=== PATIENT | female | born 1990 | race Caucasian/White ===

== ENCOUNTER 2025-07-11 05:18 | Inpatient (IN) | payer OTHER ==
[~2025-07-11] VITALS: Ht 167.6 cm; Wt 86.0 kg
[2025-07-11] MEDS: LORazepam 2 MG/ML VIAL IVP ONE ×2 (05:25→08:18)
[2025-07-11 05:42] LABS: PLATELET COUNT (AUTO) 451 K/uL (150-450); RED BLOOD CELL COUNT(AUTO) 4.65 MIL/uL (4.00-5.20); RED CELL DISTRIBUTION WIDTH 14.3 % (11.5-14.5); WHITE BLOOD COUNT (AUTO) 10.6 K/uL (4.5-11.0)
[2025-07-11 05:49] LABS: CALCIUM, TOTAL 8.6 mg/dL (8.8-10.5); CREATININE 0.80 mg/dL (0.60-1.30); GLOMERULAR FILTR. RATE CALC > 60 mL/min (>60); GLUCOSE,RANDOM 111 mg/dL (70-110); SODIUM SERUM 139 mmol/L (136-145); UREA NITROGEN, BLOOD 10 mg/dL (7-18)
[2025-07-11 06:00] LABS: TROPONIN I-HIGH SENSITIVITY Less Than 4 ng/L (<51)
[2025-07-11] MEDS: LevETIRAcetam 2,000 MG in DEXTROSE 5%-WATER 250 ML IV ONE (06:00)
[2025-07-11 06:01] LABS: LACTIC ACID 11.9 mmol/L (0.4-2.0)
[2025-07-11] MEDS: SODIUM CHLORIDE 0.9% 1,000 ML IV ONE (06:15)
[2025-07-11 06:21] LABS: GLUCOMETER DEV NAME(LOC) ER.7; GLUCOSE,POINT OF CARE 128 MG/DL (70-110)
[2025-07-11 06:28] LABS: APPEARANCE,URINE CLEAR (CLEAR); GLUCOSE, URINE (UA) NEGATIVE (NEGATIVE); LEUKOCYTE ESTERASE ,URINE NEGATIVE (NEGATIVE); NITRATE,URINE NEGATIVE (NEGATIVE); OCCULT BLOOD,URINE NEGATIVE (NEGATIVE); PH,URINE DRUG SCREEN 5.0 (5.0-8.0); SPECIFIC GRAVITIY, URINE 1.019 (1.003-1.030)
[2025-07-11 06:34] LABS: ALCOHOL, URINE DRUG SCREEN NEGATIVE (NEGATIVE); AMPHET/METH SCREEN,URINE POSITIVE (NEGATIVE); BARBITURATE SCREEN, URINE NEGATIVE (NEGATIVE); CANNABINOID SCREEN,URINE POSITIVE (NEGATIVE); COCAINE SCREEN,URINE NEGATIVE (NEGATIVE); METHADONE SCREEN, URINE NEGATIVE (NEGATIVE)
[2025-07-11] MEDS: HYDROGEN PEROXIDE 3% 118 ML SOLUTION TP ONE (06:55)
[2025-07-11] MEDS: SODIUM CHLORIDE 0.9% 2,000 ML IV ONE (06:55)
[2025-07-11] MEDS: CefTRIAXone 1 GM/DEXTROSE 50 ML IV ONE (06:57)
[2025-07-11] MEDS: KETAMINE HCL 50 MG/ML 10 ML VIAL IVP ONE (08:18)
[2025-07-11 12:00] VITALS: BP 110/78; PULSE 81; RESP 19; O2SAT 99
[2025-07-11] MEDS ORDERED: MORPHINE SULFATE 4 MG/ML SYRINGE IVP PRN (13:45)
[2025-07-11] MEDS ORDERED: HYDROCODONE/ACETAMINOPHEN 5-325 MG TABLET PO PRN (13:45)
[2025-07-11] MEDS ORDERED: ACETAMINOPHEN 325 MG TABLET PO PRN (13:45)
[2025-07-11] MEDS ORDERED: MAGNESIUM HYDROXIDE SUSPENSION 30 ML UDCUP PO PRN (13:45)
[2025-07-11] MEDS ORDERED: ONDANSETRON HCL 4 MG/2 ML VIAL IVP PRN (13:45)
[2025-07-11] MEDS ORDERED: BISACODYL 10 MG RECTAL RECTAL SUPPOSITORY PR PRN (13:45)
[2025-07-11] MEDS ORDERED: ZOLPIDEM TARTRATE 5 MG TABLET PO PRN (13:45)
[2025-07-11] MEDS ORDERED: LORazepam 2 MG/ML VIAL IVP PRN (14:00)
[2025-07-11 16:12] VITALS: BP 115/78; PULSE 75; RESP 18; TEMP 98.1; O2SAT 99
[2025-07-11] MEDS: LevETIRAcetam 750 MG in DEXTROSE 5%-WATER 100 ML IV SCH (16:13)
[2025-07-11] MEDS: HEPARIN SODIUM,PORCINE 5,000 UNITS/ML VIAL SQ SCH (16:14)
[2025-07-11 19:36] VITALS: RESP 17
[2025-07-11] MEDS: DOCUSATE SODIUM 100 MG CAPSULE PO SCH (20:35)
[2025-07-11 23:43] VITALS: BP 115/79; PULSE 80; RESP 18; TEMP 98.1; O2SAT 99
[2025-07-12 03:23] VITALS: BP 107/76; PULSE 62; RESP 17; TEMP 97.9; O2SAT 100
[2025-07-12] MEDS ORDERED: PANTOPRAZOLE SODIUM 40 MG DR TABLET PO SCH (09:00)
== END 2025-07-12 05:20 | disposition left against medical advice (07) | DRG 53 ==
LOC: EMS 05:27 → EDH 09:45 → 5S 11:37
PROVIDERS: ADMIT Internal Medicine; ATTEND Internal Medicine
DX: G40.901 Epilepsy, unspecified, not intractable, with status epilepticus (principal); E11.9 Type 2 diabetes mellitus without complications; F15.10 Other stimulant abuse, uncomplicated; Z91.148 Patient's other noncompliance with medication regimen for other reason; F12.10 Cannabis abuse, uncomplicated; Z53.29 Procedure and treatment not carried out because of patient's decision for other reasons
CPT/HCPCS: 51702; 70450; 71045; 80048; 80307; 81003; 82962; 83605; 84145; 84484; 84703; 85025; 85610; 87040; 93005; 96365; 96367; 96375; 96376; 99291; J0696; J0712; J1644; J2060; J3490; J7030; J7060; 36415-L1; 36415-TC